=== PATIENT | female | born 1985 | race Caucasian/White ===

== ENCOUNTER 2022-12-30 13:13 | Emergency (ER) | payer SELFPAY ==
[2022-12-30] MEDS ORDERED: Ketorolac Tromethamine 30 MG/ML VIAL ONE (14:04)
[2022-12-30] MEDS ORDERED: Dexamethasone 10 MG/ML VIAL ONE (14:04)
[2022-12-30] MEDS ORDERED: Bicillin LA 1.2 MILLION UNITS/2 ML SYRINGE ONE (15:09)
== END 2022-12-30 15:35 | disposition home or self-care (01) ==
LOC: ERS 13:13
DX: J03.90 Acute tonsillitis, unspecified (principal)
CPT/HCPCS: 87081; 87430; 96372; 99283; J0561; J1100; J1885